=== PATIENT | female | born 1995 | race Caucasian/White ===

== ENCOUNTER 2019-01-21 07:48 | Outpatient (CLI) | payer OTHER ==
--- NOTE | 2019-01-21 08:56 | ULT ---
LIMITED LEFT BREAST ULTARSOUND: DATE: 01/21/2019. PROVIDED CLINICAL HISTORY: Left breast lump. FINDINGS: Limited sonographic interrogation was performed of the left breast in the region of palpable concern. The sonographic appearance of the breast parenchyma in this region is normal. IMPRESSION: No sonographic abnormality is evident in the region of palpable concern. Negative imaging findings s hould not preclude further evaluation of a clinically suspicious area. The patient is referred back to her clinician. POS: OFF
== END 2019-01-21 07:49 | disposition home or self-care (01) ==
LOC: BICULT 07:48
PROVIDERS: ATTEND Advanced Practice Midwife
DX: N63.42 Unspecified lump in left breast, subareolar (principal)